=== PATIENT | male | born 1970 | race Caucasian/White ===

== ENCOUNTER 2023-06-29 07:15 | Outpatient (RCR) | payer OTHER, SELFPAY ==
[2023-04-14 08:54] VITALS: PULSE 74
== END 2023-06-29 08:18 | disposition home or self-care (01) ==
LOC: ANHCPREHAB 07:15
PROVIDERS: PCP Nuclear Medicine Nuclear Cardiology; Visit Provider Nuclear Medicine Nuclear Cardiology
DX: Z95.1 Presence of aortocoronary bypass graft (principal)
CPT/HCPCS: 93798